=== PATIENT | male | born 1975 | race Caucasian/White ===

== ENCOUNTER 2023-03-06 09:29 | Day surgery (SDC) | payer BC ==
[2023-03-05 11:10] VITALS: BMI 38.0
[2023-03-06] MEDS ORDERED: Heparin 10,000 UNITS/ 10 ML VIAL ONE ×3 (09:49→13:57)
[2023-03-06] MEDS ORDERED: fentaNYL PF 100 MCG/2 ML SYRINGE ONE (11:52)
[2023-03-06] MEDS ORDERED: Midazolam HCl 2 mg/2 ml Vial ONE (11:59)
[2023-03-06] MEDS ORDERED: Heparin 25,000 units/D5W 500 ML ONE (13:38)
[2023-03-06] MEDS ORDERED: Protamine Sulfate 50 MG/5 ML VIAL ONE (13:57)
== END 2023-03-06 17:21 | disposition home or self-care (01) ==
LOC: SDC 09:29
PROVIDERS: ATTEND Internal Medicine Cardiovascular Disease
PROC: 02583ZZ Destruction of Conduction Mechanism, Percutaneous Approach (ICD-10-PCS; principal; 2023-03-06)
PROC: 4A023FZ Measurement of Cardiac Rhythm, Percutaneous Approach (ICD-10-PCS; principal; 2023-03-06)
PROC: 4A0234Z Measurement of Cardiac Electrical Activity, Percutaneous Approach (ICD-10-PCS; principal; 2023-03-06)
PROC: B246ZZ4 Ultrasonography of Right and Left Heart, Transesophageal (ICD-10-PCS; principal; 2023-03-06)
PROC: 02K83ZZ Map Conduction Mechanism, Percutaneous Approach (ICD-10-PCS; principal; 2023-03-06)
DX: I48.0 Paroxysmal atrial fibrillation (principal); I48.4 Atypical atrial flutter; I51.7 Cardiomegaly; I34.0 Nonrheumatic mitral (valve) insufficiency; E78.2 Mixed hyperlipidemia; K21.9 Gastro-esophageal reflux disease without esophagitis; N18.9 Chronic kidney disease, unspecified; Z87.891 Personal history of nicotine dependence; Z79.01 Long term (current) use of anticoagulants; Z79.899 Other long term (current) drug therapy
CPT/HCPCS: 93005; 93010; 93312; 93623; 93655; 93656; C1732; C1759; C1760; C1894; C2630; J1644; J2250; J2720